=== PATIENT | female | born 1930 | race Caucasian/White ===

== ENCOUNTER 2016-07-22 11:57 | Emergency (ER) | payer OTHER ==
[~2016-07-22] VITALS: Ht 149.9 cm; Wt 52.6 kg
[2016-07-22 12:09] VITALS: BP 153/71; PULSE 74; RESP 20; TEMP 98.2; O2SAT 98
--- NOTE | 2016-07-22 12:09 | NUR ---
Patient to ER bed 03 to gown for evaluation. Side rails up
--- NOTE | 2016-07-22 12:10 | NUR ---
Pt brought by daughter , A&ox4, PT C/O pelvic pain and vaginal discharge, skin pink and warm, cap refill <3, VSS, respirations even and unlabored,
--- NOTE | 2016-07-22 12:14 | NUR ---
Dr Blackwell at bedside examining patient
[2016-07-22] MEDS ORDERED: ZOLOFT (12:44)
[2016-07-22] MEDS ORDERED: SERT-131 (12:44)
[2016-07-22] MEDS ORDERED: MELO15TA13 (12:44)
[2016-07-22] MEDS ORDERED: LOVA40TA75 (12:44)
[2016-07-22] MEDS ORDERED: KETOROLAC TROMETHAMINE 15 MG VIAL IVP ONE (13:30)
[2016-07-22] MEDS ORDERED: cefTRIAXone 1 GM IVPB PREMIX 50 ML IV ONE (13:30)
[2016-07-22] MEDS ORDERED: NACL 0.9% 1,000 ML IV ONE (13:30)
[2016-07-22 13:36] LABS: BASOPHILS # (AUTO) 0.2 K/uL (0.0-0.2); BASOPHILS % (AUTO) 1.4 % (0.0-2.0); EOSINOPHILS # (AUTO) 0.1 K/uL (0.0-0.4); EOSINOPHILS % (AUTO) 0.5 % (0.0-4.0); HEMATOCRIT 38.5 % (36-48); HEMOGLOBIN 12.7 g/dL (12.0-16.0); LYMPHOCYTES # (AUTO) 5.3 K/uL (1.0-5.5); MEAN CORPUSCULAR HEMOGLOBIN 27 pg (27-31); MEAN CORPUSCULAR HGB CONC 33 % (32-36); MEAN CORPUSCULAR VOLUME 82 fL (79.0-98.0); MONOCYTES # (AUTO) 0.5 K/uL (0.0-1.0); MONOCYTES % (AUTO) 4.1 % (1.7-9.3); NEUTROPHILS # (AUTO) 5.3 K/uL (1.8-7.7); PLATELET COUNT (AUTO) 230 K/uL (130-430); RED BLOOD CELL COUNT(AUTO) 4.68 MIL/uL (4.2-6.2); RED CELL DISTRIBUTION WIDTH 13.4 % (9.0-15.0); WHITE BLOOD COUNT (AUTO) 11.4 K/uL (4.8-10.8)
[2016-07-22 13:41] LABS: BILIRUBIN,URINE NEGATIVE (NEGATIVE); CLARITY/URINE CLEAR (CLEAR); COLOR,URINE YELLOW (YELLOW); GLUCOSE,URINE NEGATIVE (NEGATIVE); KETONES,URINE NEGATIVE (NEGATIVE); LEUKOCYTE ESTERASE ,URINE 2+ (NEGATIVE); NITRITE, URINE NEGATIVE (NEGATIVE); PROTEIN URINE NEGATIVE (NEGATIVE); UROBILINOGEN,URINE 0.2 (0.2-1.0)
[2016-07-22 13:46] LABS: ANION GAP 6 (5-15); CALCIUM 8.6 mg/dL (8.4-11.0); CHLORIDE 102 mmol/L (98-107); CREATININE 0.86 mg/dL (0.55-1.30); GLUCOSE 119 mg/dL (70-99); POTASSIUM 4.2 mmol/L (3.5-5.1); SODIUM SERUM 136 mmol/L (136-145); UREA NITROGEN, BLOOD 16 mg/dL (8-21)
[2016-07-22 13:50] LABS: ALANINE AMINOTRANSFERASE 24 U/L (12-78); ALBUMIN 3.5 g/dL (3.4-4.8); AMYLASE 50 U/L (0-100); ASPARTATE AMINOTRANSFERASE 21 U/L (10-37); LIPASE 185 U/L (73-393); TOTAL BILIRUBIN 0.7 mg/dL (0.0-1.0); TOTAL PROTEIN, SERUM 6.9 g/dL (6.4-8.3)
[2016-07-22 13:59] LABS: BLOOD, URINE TRACE (NEGATIVE)
[2016-07-22 14:02] LABS: BACTERIA,URINE FEW /HPF (None Seen); RBC,URINE 0-3 /HPF (0-3)
[2016-07-22 14:03] LABS: MUCUS,URINE None Seen /LPF (None Seen)
[2016-07-22 14:10] VITALS: BP 153/71; PULSE 74; RESP 20; TEMP 98.2; O2SAT 98
--- NOTE | 2016-07-22 14:10 | NUR ---
Patient given written and verbal discharge instructions and verbalizes understanding. ER MD discussed with patient the results and treatment provided.Patient in stable condition. ID arm band removed. IV catheter removed intact and dressing applied, no active bleeding. . Patient educated on pain management and to follow up with PMD. Pain Scale 0/10. Opportunity for questions provided and answered.
== END 2016-07-22 14:10 | disposition home or self-care (01) ==
LOC: SED 11:57
DX: N39.0 Urinary tract infection, site not specified (principal); R03.0 Elevated blood-pressure reading, without diagnosis of hypertension; E78.00 Pure hypercholesterolemia, unspecified
CPT/HCPCS: 36415; 80053; 81000; 82150; 83605; 83690; 85025; 87040; 87086; 96360; 96365; 96375; 99284; J0696; J1885; J7030

== ENCOUNTER 2018-04-14 09:58 | Inpatient (IN) | payer OTHER ==
[2018-04-14] VITALS (13 sets, daily range): BP systolic 120–154
[~2018-04-14] VITALS: Ht 149.9 cm; Wt 44.1 kg
[~2018-04-14 09:58] MED LIST: CEPH-568 PO; FEN12PAT TD; LIP40 PO; MELO15TA13 PO; OXYB5TAB11 PO; SERT100T PO
[2018-04-14] MEDS ORDERED: NACL 0.9% 1,000 ML IV ONE (10:32)
[2018-04-14] MEDS ORDERED: ASPIRIN 81 MG TAB.CHEW PO ONE (10:45)
[2018-04-14] MEDS ORDERED: ATROPINE SULFATE 0.4 MG/ML VIAL IVP ONE ×2 (10:45→12:15)
[2018-04-14] MEDS ORDERED: ATROPINE SULFATE 1 MG/10 ML SYRINGE IVP ONE (10:51)
[2018-04-14 11:00] LABS: BASOPHILS # (AUTO) 0.2 K/uL (0.0-0.2); BASOPHILS % (AUTO) 1.1 % (0.0-2.0); EOSINOPHILS % (AUTO) 0.1 % (0.0-4.0); HEMATOCRIT 35.1 % (36-48); HEMOGLOBIN 11.7 g/dL (12.0-16.0); LYMPHOCYTES # (AUTO) 6.4 K/uL (1.0-5.5); LYMPHOCYTES % (AUTO) 33.6 % (20.5-51.5); MEAN CORPUSCULAR HEMOGLOBIN 27 pg (27-31); MEAN CORPUSCULAR HGB CONC 33 % (32-36); MEAN CORPUSCULAR VOLUME 81 fL (79.0-98.0); NEUTROPHILS # (AUTO) 11.5 K/uL (1.8-7.7); PLATELET COUNT (AUTO) 173 K/uL (130-430); RED BLOOD CELL COUNT(AUTO) 4.32 MIL/uL (4.2-6.2); RED CELL DISTRIBUTION WIDTH 14.8 % (9.0-15.0); WHITE BLOOD COUNT (AUTO) 19.1 K/uL (4.8-10.8)
[2018-04-14 11:16] LABS: ANION GAP 14 (5-15); CALCIUM 9.1 mg/dL (8.4-11.0); CREATININE 1.21 mg/dL (0.55-1.30); POTASSIUM 4.6 mmol/L (3.5-5.1); PROTHROMBIN TIME 10.5 SECS (9.5-12.5)
[2018-04-14 11:21] LABS: ALANINE AMINOTRANSFERASE 81 U/L (12-78); ALBUMIN 3.2 g/dL (3.4-4.8); AMYLASE 25 U/L (0-100); ASPARTATE AMINOTRANSFERASE 48 U/L (10-37); LIPASE 144 U/L (73-393); TOTAL BILIRUBIN 1.5 mg/dL (0.0-1.0)
[2018-04-14 11:22] LABS: CHLORIDE 87 mmol/L (98-107); GLUCOSE 116 mg/dL (70-99); SODIUM SERUM 121 mmol/L (136-145); UREA NITROGEN, BLOOD 46 mg/dL (8-21)
[2018-04-14 12:20] LABS: NEUTROPHILS % (AUTO) 60.2 % (40.0-70.0)
[2018-04-14] MEDS ORDERED: AZITHROMYCIN 500 MG in NS 250 ML IV ONE (12:45)
[2018-04-14] MEDS ORDERED: cefTRIAXone 1 GM IVPB PREMIX 50 ML IV ONE (12:45)
[2018-04-14 13:07] LABS: BILIRUBIN,URINE NEGATIVE (NEGATIVE); CLARITY/URINE CLEAR (CLEAR); COLOR,URINE YELLOW (YELLOW); GLUCOSE,URINE NEGATIVE (NEGATIVE); KETONES,URINE TRACE (NEGATIVE); LEUKOCYTE ESTERASE ,URINE NEGATIVE (NEGATIVE); NITRITE, URINE NEGATIVE (NEGATIVE); PH,URINE 5.5 (5.0-8.0); PROTEIN URINE 1+ (NEGATIVE); UROBILINOGEN,URINE 0.2 (0.2-1.0)
[2018-04-14 13:08] LABS: BLOOD, URINE TRACE (NEGATIVE)
[2018-04-14] MEDS ORDERED: ATROPINE SULFATE 1 MG/10 ML SYRINGE IVP PRN (13:30)
[2018-04-14] MEDS ORDERED: FUROSEMIDE 20 MG/2 ML VIAL IVP ONE (13:30)
[2018-04-14] MEDS ORDERED: ONDANSETRON HCL 4 MG/2 ML VIAL IVP PRN (13:30)
[2018-04-14 13:43] LABS: BACTERIA,URINE MODERATE /HPF (None Seen); HYALINE CASTS, URINE 0-10 /LPF (None Seen)
[2018-04-14] MEDS: NORMAL SALINE 5 ML DISP.SYRIN IVF SCH ×2 (14:00→22:37)
[2018-04-14] MEDS ORDERED: AZITHROMYCIN 500 MG/VIAL (ZITHROMAX) IV ONE (14:05)
[2018-04-14] MEDS ORDERED: CEFEPIME 1 GM in D5W 50 ML IV ONE (14:15)
[2018-04-14] MEDS: ALBUTEROL SULFATE 0.083% 2.5 MG/3 ML VIAL.NEB INH SCH ×3 (15:00→23:14)
[2018-04-14 15:30] LABS: FREE T4 (FREE THYROXINE) 0.9 ng/dL (0.6-1.6); THYROID STIMULATING HORMONE 1.99 uIu/mL (0.34-4.82)
[2018-04-14] MEDS: NACL 0.9% 1,000 ML IV SCH (17:00)
[2018-04-14] MEDS: LEVOFLOXACIN 250 MG/D5W 50 ML IV SCH (17:01)
[2018-04-14] MEDS ORDERED: NS 250 ML IV.SOLN IV ONE (17:30)
[2018-04-14] MEDS ORDERED: BUPIVACAINE /EPINEPHRINE/PF 0.25% 30 ML VIAL INJ ONE (17:30)
[2018-04-14] MEDS ORDERED: MIDAZOLAM HCL 5 MG/5 ML VIAL IVP ONE (17:30)
[2018-04-14] MEDS ORDERED: PROPOFOL 200MG/ 20ML VIAL (DIPRIVAN) IV ONE (17:30)
[2018-04-14] MEDS ORDERED: LIDOCAINE 1% 10 MG/ML, 20 ML MDV INJ ONE (17:30)
[2018-04-14] MEDS ORDERED: VANCOMYCIN HCL 1000 MG/VIAL IV ONE (17:30)
[2018-04-14] MEDS: CEFEPIME 1 GM in D5W 50 ML IV SCH (20:15)
[2018-04-14] MEDS ORDERED: ACETAMINOPHEN 650 MG SUPP.RECT RC PRN (20:15)
[2018-04-14] MEDS: FUROSEMIDE 20 MG/2 ML VIAL IVP SCH (20:16)
[2018-04-14] MEDS ORDERED: ACETAMINOPHEN 650 MG SUPP.RECT RC ONE (20:18)
[2018-04-14] MEDS: ATORVASTATIN 20 MG TABLET PO SCH (20:38)
[2018-04-14] MEDS ORDERED: CEFEPIME 1 GM in D5W 50 ML IV SCH (21:00)
[2018-04-14] MEDS ORDERED: MORPHINE 4 MG/ML INJ. SYRINGE IM PRN (22:00)
[2018-04-15] VITALS (24 sets, daily range): BP systolic 100–151
[2018-04-15] MEDS: ALBUTEROL SULFATE 0.083% 2.5 MG/3 ML VIAL.NEB INH SCH ×6 (04:02→23:10)
[2018-04-15] MEDS: NORMAL SALINE 5 ML DISP.SYRIN IVF SCH ×3 (05:34→21:01)
[2018-04-15 06:54] LABS: BASOPHILS % (AUTO) 0.1 % (0.0-2.0); EOSINOPHILS # (AUTO) 0.1 K/uL (0.0-0.4); EOSINOPHILS % (AUTO) 0.5 % (0.0-4.0); HEMATOCRIT 29.7 % (36-48); HEMOGLOBIN 9.7 g/dL (12.0-16.0); LYMPHOCYTES # (AUTO) 3.1 K/uL (1.0-5.5); LYMPHOCYTES % (AUTO) 30.7 % (20.5-51.5); MEAN CORPUSCULAR HEMOGLOBIN 27 pg (27-31); MEAN CORPUSCULAR HGB CONC 33 % (32-36); MEAN CORPUSCULAR VOLUME 81 fL (79.0-98.0); MONOCYTES # (AUTO) 0.7 K/uL (0.0-1.0); MONOCYTES % (AUTO) 6.8 % (1.7-9.3); NEUTROPHILS # (AUTO) 6.2 K/uL (1.8-7.7); NEUTROPHILS % (AUTO) 61.9 % (40.0-70.0); PLATELET COUNT (AUTO) 121 K/uL (130-430); RED BLOOD CELL COUNT(AUTO) 3.67 MIL/uL (4.2-6.2); RED CELL DISTRIBUTION WIDTH 14.7 % (9.0-15.0); WHITE BLOOD COUNT (AUTO) 10.1 K/uL (4.8-10.8)
[2018-04-15] MEDS: CEFEPIME 1 GM in D5W 50 ML IV SCH ×2 (08:28→20:36)
[2018-04-15 08:29] LABS: ALANINE AMINOTRANSFERASE 60 U/L (12-78); ALBUMIN 2.4 g/dL (3.4-4.8); ANION GAP 15 (5-15); ASPARTATE AMINOTRANSFERASE 33 U/L (10-37); CALCIUM 7.7 mg/dL (8.4-11.0); CHLORIDE 95 mmol/L (98-107); CREATININE 1.13 mg/dL (0.55-1.30); GLUCOSE 89 mg/dL (70-99); POTASSIUM 3.6 mmol/L (3.5-5.1); SODIUM SERUM 128 mmol/L (136-145); TOTAL BILIRUBIN 0.7 mg/dL (0.0-1.0); UREA NITROGEN, BLOOD 43 mg/dL (8-21)
[2018-04-15] MEDS: FUROSEMIDE 20 MG/2 ML VIAL IVP SCH (08:29)
[2018-04-15] MEDS: ENOXAPARIN SODIUM 30 MG/0.3 ML SYRINGE SUBCUT SCH (08:30)
[2018-04-15] MEDS: OXYBUTYNIN CHLORIDE 5 MG TABLET PO SCH (09:00)
[2018-04-15] MEDS ORDERED: DOPamine PREMIX 250 ML IV PRN (09:00)
[2018-04-15] MEDS: PANTOPRAZOLE SODIUM 40 MG TAB PO SCH (09:00)
[2018-04-15] MEDS: SERTRALINE HCL 50 MG TABLET PO SCH (09:00)
[2018-04-15] MEDS: D5/0.45 NS 1,000 ML IV SCH ×2 (10:27→20:40)
[2018-04-15] MEDS ORDERED: POTASSIUM CHLORIDE 40 MEQ in NS 250 ML IV ONE (11:00)
[2018-04-15 11:37] LABS: URINE SODIUM, RANDOM 20 mmol/L (40-220)
[2018-04-15] MEDS: LEVOFLOXACIN 250 MG/D5W 50 ML IV SCH (14:41)
[2018-04-15] MEDS: NACL 0.9% 1,000 ML IV SCH (16:00)
[2018-04-15] MEDS ORDERED: FUROSEMIDE 20 MG/2 ML VIAL IVP ONE (20:00)
[2018-04-15] MEDS: ATORVASTATIN 20 MG TABLET PO SCH (20:35)
[2018-04-16] VITALS (21 sets, daily range): BP systolic 100–175
[2018-04-16] MEDS: ALBUTEROL SULFATE 0.083% 2.5 MG/3 ML VIAL.NEB INH SCH ×6 (03:00→23:15)
[2018-04-16] MEDS: NORMAL SALINE 5 ML DISP.SYRIN IVF SCH ×3 (05:47→21:20)
[2018-04-16 06:08] LABS: BASOPHILS % (AUTO) 0.3 % (0.0-2.0); EOSINOPHILS # (AUTO) 0.1 K/uL (0.0-0.4); EOSINOPHILS % (AUTO) 0.6 % (0.0-4.0); HEMATOCRIT 33.6 % (36-48); LYMPHOCYTES # (AUTO) 4.2 K/uL (1.0-5.5); LYMPHOCYTES % (AUTO) 35.5 % (20.5-51.5); MEAN CORPUSCULAR HEMOGLOBIN 27 pg (27-31); MEAN CORPUSCULAR HGB CONC 33 % (32-36); MEAN CORPUSCULAR VOLUME 83 fL (79.0-98.0); MONOCYTES # (AUTO) 0.9 K/uL (0.0-1.0); MONOCYTES % (AUTO) 7.4 % (1.7-9.3); NEUTROPHILS # (AUTO) 6.6 K/uL (1.8-7.7); NEUTROPHILS % (AUTO) 56.2 % (40.0-70.0); PLATELET COUNT (AUTO) 162 K/uL (130-430); RED BLOOD CELL COUNT(AUTO) 4.03 MIL/uL (4.2-6.2); RED CELL DISTRIBUTION WIDTH 14.9 % (9.0-15.0); WHITE BLOOD COUNT (AUTO) 11.8 K/uL (4.8-10.8)
[2018-04-16 06:11] LABS: ALANINE AMINOTRANSFERASE 53 U/L (12-78); ALBUMIN 2.3 g/dL (3.4-4.8); AMYLASE 41 U/L (0-100); ANION GAP 13 (5-15); ASPARTATE AMINOTRANSFERASE 28 U/L (10-37); CALCIUM 7.6 mg/dL (8.4-11.0); CHLORIDE 99 mmol/L (98-107); CREATININE 0.89 mg/dL (0.55-1.30); GLUCOSE 152 mg/dL (70-99); LIPASE 402 U/L (73-393); POTASSIUM 3.8 mmol/L (3.5-5.1); SODIUM SERUM 132 mmol/L (136-145); TOTAL BILIRUBIN 0.7 mg/dL (0.0-1.0); UREA NITROGEN, BLOOD 28 mg/dL (8-21)
[2018-04-16] MEDS ORDERED: DOPamine PREMIX 250 ML IV PRN (07:30)
[2018-04-16] MEDS: CEFEPIME 1 GM in D5W 50 ML IV SCH ×2 (08:04→21:20)
[2018-04-16] MEDS: OXYBUTYNIN CHLORIDE 5 MG TABLET PO SCH (08:05)
[2018-04-16] MEDS: PANTOPRAZOLE SODIUM 40 MG TAB PO SCH (08:07)
[2018-04-16] MEDS: FUROSEMIDE 20 MG/2 ML VIAL IVP SCH (08:13)
[2018-04-16] MEDS: SERTRALINE HCL 50 MG TABLET PO SCH (08:28)
[2018-04-16] MEDS: D5/0.45 NS 1,000 ML IV SCH ×2 (08:30→16:03)
[2018-04-16] MEDS: ENOXAPARIN SODIUM 30 MG/0.3 ML SYRINGE SUBCUT SCH (08:31)
[2018-04-16] MEDS: LEVOFLOXACIN 250 MG/D5W 50 ML IV SCH (14:31)
[2018-04-16] MEDS ORDERED: VANCOMYCIN HCL 1 GM/NS PREMIX 250 ML IV ONE (16:00)
[2018-04-16] MEDS ORDERED: POLYMYXIN 500,000/BACIT.10,000 UNITS in NS IRR 1 L IR ONE (17:49)
[2018-04-16] MEDS ORDERED: fentaNYL CITRATE/PF 100 MCG/2 ML AMP IVP PRN ×2 (18:15)
[2018-04-16] MEDS ORDERED: ONDANSETRON HCL 4 MG/2 ML VIAL IVP PRN (18:15)
[2018-04-16] MEDS ORDERED: IOHEXOL 50 ML IV ONE (18:15)
[2018-04-16] MEDS: ATORVASTATIN 20 MG TABLET PO SCH (21:20)
[2018-04-16] MEDS: ACETAMINOPHEN 325 MG TABLET PO PRN (21:29)
[2018-04-17] VITALS (19 sets, daily range): BP systolic 127–160
[2018-04-17] MEDS: D5/0.45 NS 1,000 ML IV SCH ×2 (04:02→13:13)
[2018-04-17] MEDS: ALBUTEROL SULFATE 0.083% 2.5 MG/3 ML VIAL.NEB INH SCH ×6 (04:08→23:00)
[2018-04-17] MEDS: NORMAL SALINE 5 ML DISP.SYRIN IVF SCH ×3 (06:05→21:24)
[2018-04-17] MEDS: ACETAMINOPHEN 325 MG TABLET PO PRN ×3 (06:06→19:25)
[2018-04-17 06:55] LABS: BASOPHILS % (AUTO) 0.1 % (0.0-2.0); EOSINOPHILS # (AUTO) 0.1 K/uL (0.0-0.4); EOSINOPHILS % (AUTO) 1.6 % (0.0-4.0); HEMOGLOBIN 10.2 g/dL (12.0-16.0); LYMPHOCYTES # (AUTO) 3.1 K/uL (1.0-5.5); LYMPHOCYTES % (AUTO) 35.8 % (20.5-51.5); MEAN CORPUSCULAR HEMOGLOBIN 27 pg (27-31); MEAN CORPUSCULAR HGB CONC 32 % (32-36); MEAN CORPUSCULAR VOLUME 83 fL (79.0-98.0); MONOCYTES # (AUTO) 0.5 K/uL (0.0-1.0); MONOCYTES % (AUTO) 6.1 % (1.7-9.3); NEUTROPHILS % (AUTO) 56.4 % (40.0-70.0); PLATELET COUNT (AUTO) 163 K/uL (130-430); RED BLOOD CELL COUNT(AUTO) 3.85 MIL/uL (4.2-6.2); RED CELL DISTRIBUTION WIDTH 15.1 % (9.0-15.0); WHITE BLOOD COUNT (AUTO) 8.7 K/uL (4.8-10.8)
[2018-04-17 07:55] LABS: ANION GAP 10 (5-15); CALCIUM 7.3 mg/dL (8.4-11.0); CHLORIDE 103 mmol/L (98-107); GLUCOSE 113 mg/dL (70-99); POTASSIUM 3.4 mmol/L (3.5-5.1); SODIUM SERUM 135 mmol/L (136-145); UREA NITROGEN, BLOOD 16 mg/dL (8-21)
[2018-04-17 08:59] LABS: CREATININE 0.83 mg/dL (0.55-1.30); LIPASE 355 U/L (73-393)
[2018-04-17] MEDS: CEFEPIME 1 GM in D5W 50 ML IV SCH ×2 (09:51→20:14)
[2018-04-17] MEDS: VANCOMYCIN HCL 1 GM/NS PREMIX 250 ML IV SCH ×2 (09:52→21:24)
[2018-04-17] MEDS: SERTRALINE HCL 50 MG TABLET PO SCH (09:52)
[2018-04-17] MEDS: PANTOPRAZOLE SODIUM 40 MG TAB PO SCH (09:52)
[2018-04-17] MEDS: FUROSEMIDE 20 MG/2 ML VIAL IVP SCH (09:53)
[2018-04-17] MEDS: OXYBUTYNIN CHLORIDE 5 MG TABLET PO SCH (09:53)
[2018-04-17] MEDS: ENOXAPARIN SODIUM 30 MG/0.3 ML SYRINGE SUBCUT SCH (09:54)
[2018-04-17] MEDS ORDERED: POTASSIUM CHLORIDE 40 MEQ, LIDOCAINE JECT 2% PF 100 MG 50 MG in NS 250 ML IV ONE (10:30)
[2018-04-17] MEDS: LEVOFLOXACIN 250 MG/D5W 50 ML IV SCH (14:25)
[2018-04-17] MEDS: ATORVASTATIN 20 MG TABLET PO SCH (20:13)
[2018-04-18] VITALS (19 sets, daily range): BP systolic 102–155
[2018-04-18] MEDS: D5/0.45 NS 1,000 ML IV SCH (02:40)
[2018-04-18] MEDS: ALBUTEROL SULFATE 0.083% 2.5 MG/3 ML VIAL.NEB INH SCH ×6 (03:55→23:54)
[2018-04-18 05:31] LABS: HEMATOCRIT 37.4 % (36-48); HEMOGLOBIN 12.5 g/dL (12.0-16.0); MEAN CORPUSCULAR HEMOGLOBIN 27 pg (27-31); MEAN CORPUSCULAR HGB CONC 33 % (32-36); MEAN CORPUSCULAR VOLUME 82 fL (79.0-98.0); PLATELET COUNT (AUTO) 203 K/uL (130-430); RED BLOOD CELL COUNT(AUTO) 4.57 MIL/uL (4.2-6.2)
[2018-04-18 05:33] LABS: ANION GAP 14 (5-15); CALCIUM 7.1 mg/dL (8.4-11.0); CHLORIDE 99 mmol/L (98-107); CREATININE 0.78 mg/dL (0.55-1.30); GLUCOSE 139 mg/dL (70-99); SODIUM SERUM 133 mmol/L (136-145); UREA NITROGEN, BLOOD 12 mg/dL (8-21)
[2018-04-18 05:43] LABS: ASPARTATE AMINOTRANSFERASE 27 U/L (10-37); TOTAL BILIRUBIN 1.2 mg/dL (0.0-1.0)
[2018-04-18] MEDS: NORMAL SALINE 5 ML DISP.SYRIN IVF SCH ×3 (06:00→21:43)
[2018-04-18] MEDS ORDERED: D5/0.45 NS 1,000 ML IV SCH (06:02)
[2018-04-18 06:05] LABS: ALANINE AMINOTRANSFERASE 41 U/L (12-78); ALBUMIN 2.7 g/dL (3.4-4.8)
[2018-04-18] MEDS ORDERED: FUROSEMIDE 40 MG/4 ML VIAL IVP ONE (06:15)
[2018-04-18 06:28] LABS: BASOPHILS % (MANUAL) 0 % (0-2); EOSINOPHILS % (MANUAL) 2 % (0-7); LYMPHOCYTES % (MANUAL) 32 % (20-46); MONOCYTES % (MANUAL) 5 % (0-11)
[2018-04-18] MEDS ORDERED: FUROSEMIDE 20 MG/2 ML VIAL IVP ONE (07:50)
[2018-04-18] MEDS ORDERED: SODIUM BICARBONATE 8.4% JECT 50 MEQ/50 ML SYRINGE IVP ONE (09:15)
[2018-04-18] MEDS: ENOXAPARIN SODIUM 30 MG/0.3 ML SYRINGE SUBCUT SCH (09:36)
[2018-04-18] MEDS: PANTOPRAZOLE SODIUM 40 MG TAB PO SCH (09:38)
[2018-04-18] MEDS: OXYBUTYNIN CHLORIDE 5 MG TABLET PO SCH (09:38)
[2018-04-18] MEDS: SERTRALINE HCL 50 MG TABLET PO SCH (09:38)
[2018-04-18] MEDS: CEFEPIME 1 GM in D5W 50 ML IV SCH ×2 (09:40→21:42)
[2018-04-18] MEDS ORDERED: METOLAZONE 5 MG TABLET PO ONE (09:45)
[2018-04-18] MEDS ORDERED: MORPHINE 4 MG/ML INJ. SYRINGE IVP PRN (13:00)
[2018-04-18] MEDS: LEVOFLOXACIN 250 MG/D5W 50 ML IV SCH (14:49)
[2018-04-18] MEDS: FUROSEMIDE 20 MG/2 ML VIAL IVP SCH (18:17)
[2018-04-18] MEDS: ATORVASTATIN 20 MG TABLET PO SCH (21:36)
[2018-04-19] VITALS (24 sets, daily range): BP systolic 111–136
[2018-04-19] MEDS: ALBUTEROL SULFATE 0.083% 2.5 MG/3 ML VIAL.NEB INH SCH ×6 (04:02→23:49)
[2018-04-19] MEDS: FUROSEMIDE 20 MG/2 ML VIAL IVP SCH ×2 (06:31→17:23)
[2018-04-19] MEDS: NORMAL SALINE 5 ML DISP.SYRIN IVF SCH ×3 (06:32→21:15)
[2018-04-19 06:59] LABS: BASOPHILS # (AUTO) 0.1 K/uL (0.0-0.2); BASOPHILS % (AUTO) 0.4 % (0.0-2.0); EOSINOPHILS % (AUTO) 0.1 % (0.0-4.0); HEMATOCRIT 35.6 % (36-48); HEMOGLOBIN 11.7 g/dL (12.0-16.0); LYMPHOCYTES # (AUTO) 6.8 K/uL (1.0-5.5); LYMPHOCYTES % (AUTO) 33.1 % (20.5-51.5); MEAN CORPUSCULAR HEMOGLOBIN 27 pg (27-31); MEAN CORPUSCULAR HGB CONC 33 % (32-36); MEAN CORPUSCULAR VOLUME 82 fL (79.0-98.0); MONOCYTES # (AUTO) 0.9 K/uL (0.0-1.0); MONOCYTES % (AUTO) 4.2 % (1.7-9.3); NEUTROPHILS # (AUTO) 12.9 K/uL (1.8-7.7); PLATELET COUNT (AUTO) 215 K/uL (130-430); RED BLOOD CELL COUNT(AUTO) 4.34 MIL/uL (4.2-6.2); WHITE BLOOD COUNT (AUTO) 20.7 K/uL (4.8-10.8)
[2018-04-19 07:11] LABS: ALANINE AMINOTRANSFERASE 33 U/L (12-78); ALBUMIN 2.5 g/dL (3.4-4.8); ANION GAP 13 (5-15); ASPARTATE AMINOTRANSFERASE 28 U/L (10-37); CALCIUM 8.1 mg/dL (8.4-11.0); CHLORIDE 100 mmol/L (98-107); CREATININE 1.28 mg/dL (0.55-1.30); GLUCOSE 114 mg/dL (70-99); POTASSIUM 3.6 mmol/L (3.5-5.1); SODIUM SERUM 137 mmol/L (136-145); TOTAL BILIRUBIN 1.3 mg/dL (0.0-1.0); UREA NITROGEN, BLOOD 24 mg/dL (8-21)
[2018-04-19 07:25] LABS: NEUTROPHILS % (AUTO) 62.2 % (40.0-70.0)
[2018-04-19] MEDS ORDERED: METOLAZONE 5 MG TABLET PO ONE (09:15)
[2018-04-19] MEDS: CEFEPIME 1 GM in D5W 50 ML IV SCH ×2 (09:37→21:13)
[2018-04-19] MEDS: PANTOPRAZOLE SODIUM 40 MG TAB PO SCH (09:37)
[2018-04-19] MEDS: SERTRALINE HCL 50 MG TABLET PO SCH (09:37)
[2018-04-19] MEDS: ENOXAPARIN SODIUM 30 MG/0.3 ML SYRINGE SUBCUT SCH (09:41)
[2018-04-19] MEDS: LEVOFLOXACIN 250 MG/D5W 50 ML IV SCH (13:26)
[2018-04-19] MEDS: ATORVASTATIN 20 MG TABLET PO SCH (21:14)
[2018-04-19] MEDS: ACETAMINOPHEN 325 MG TABLET PO PRN (21:25)
[2018-04-20] VITALS (15 sets, daily range): BP systolic 112–139
[2018-04-20] MEDS: ALBUTEROL SULFATE 0.083% 2.5 MG/3 ML VIAL.NEB INH SCH ×6 (04:23→23:45)
[2018-04-20] MEDS: FUROSEMIDE 20 MG/2 ML VIAL IVP SCH ×2 (05:52→20:04)
[2018-04-20] MEDS: NORMAL SALINE 5 ML DISP.SYRIN IVF SCH ×3 (05:52→22:00)
[2018-04-20 06:48] LABS: BASOPHILS % (AUTO) 0.1 % (0.0-2.0); EOSINOPHILS % (AUTO) 0.2 % (0.0-4.0); HEMATOCRIT 34.6 % (36-48); HEMOGLOBIN 11.6 g/dL (12.0-16.0); LYMPHOCYTES # (AUTO) 5.4 K/uL (1.0-5.5); LYMPHOCYTES % (AUTO) 31.8 % (20.5-51.5); MEAN CORPUSCULAR HEMOGLOBIN 27 pg (27-31); MEAN CORPUSCULAR HGB CONC 33 % (32-36); MEAN CORPUSCULAR VOLUME 82 fL (79.0-98.0); MONOCYTES # (AUTO) 0.7 K/uL (0.0-1.0); MONOCYTES % (AUTO) 4.1 % (1.7-9.3); NEUTROPHILS # (AUTO) 10.9 K/uL (1.8-7.7); NEUTROPHILS % (AUTO) 63.8 % (40.0-70.0); PLATELET COUNT (AUTO) 189 K/uL (130-430); RED BLOOD CELL COUNT(AUTO) 4.25 MIL/uL (4.2-6.2); RED CELL DISTRIBUTION WIDTH 14.5 % (9.0-15.0)
[2018-04-20 07:34] LABS: ANION GAP 12 (5-15); CALCIUM 8.4 mg/dL (8.4-11.0); CHLORIDE 98 mmol/L (98-107); CREATININE 1.37 mg/dL (0.55-1.30); GLUCOSE 104 mg/dL (70-99); SODIUM SERUM 139 mmol/L (136-145); UREA NITROGEN, BLOOD 31 mg/dL (8-21)
[2018-04-20 07:44] LABS: ALANINE AMINOTRANSFERASE 24 U/L (12-78); ALBUMIN 2.3 g/dL (3.4-4.8); ASPARTATE AMINOTRANSFERASE 23 U/L (10-37); TOTAL BILIRUBIN 1.2 mg/dL (0.0-1.0)
[2018-04-20 07:51] LABS: POTASSIUM 2.7 mmol/L (3.5-5.1)
[2018-04-20] MEDS ORDERED: KCL 40 mEq in 100 mL (PREMIX) 100 ML IV ONE (08:45)
[2018-04-20] MEDS: PANTOPRAZOLE SODIUM 40 MG TAB PO SCH (08:48)
[2018-04-20] MEDS: SERTRALINE HCL 50 MG TABLET PO SCH (08:48)
[2018-04-20] MEDS: CEFEPIME 1 GM in D5W 50 ML IV SCH ×2 (08:48→20:05)
[2018-04-20] MEDS: ENOXAPARIN SODIUM 30 MG/0.3 ML SYRINGE SUBCUT SCH (08:50)
[2018-04-20] MEDS: LEVOFLOXACIN 250 MG/D5W 50 ML IV SCH (14:02)
[2018-04-20] MEDS: ATORVASTATIN 20 MG TABLET PO SCH (21:00)
[2018-04-21 00:50] VITALS: BP_SYST 109
[2018-04-21] MEDS: ALBUTEROL SULFATE 0.083% 2.5 MG/3 ML VIAL.NEB INH SCH ×6 (04:04→23:29)
[2018-04-21] MEDS: NORMAL SALINE 5 ML DISP.SYRIN IVF SCH ×3 (05:27→21:02)
[2018-04-21] MEDS: FUROSEMIDE 20 MG/2 ML VIAL IVP SCH ×2 (05:27→17:56)
[2018-04-21 06:12] LABS: ANION GAP 10 (5-15); CALCIUM 8.5 mg/dL (8.4-11.0); CHLORIDE 97 mmol/L (98-107); CREATININE 1.47 mg/dL (0.55-1.30); GLUCOSE 110 mg/dL (70-99); POTASSIUM 3.1 mmol/L (3.5-5.1); SODIUM SERUM 139 mmol/L (136-145); UREA NITROGEN, BLOOD 42 mg/dL (8-21)
[2018-04-21 06:23] LABS: ALANINE AMINOTRANSFERASE 26 U/L (12-78); ALBUMIN 2.3 g/dL (3.4-4.8); ASPARTATE AMINOTRANSFERASE 29 U/L (10-37)
[2018-04-21 07:20] LABS: BASOPHILS # (AUTO) 0.1 K/uL (0.0-0.2); BASOPHILS % (AUTO) 0.4 % (0.0-2.0); EOSINOPHILS # (AUTO) 0.1 K/uL (0.0-0.4); EOSINOPHILS % (AUTO) 0.4 % (0.0-4.0); HEMATOCRIT 37.1 % (36-48); HEMOGLOBIN 11.8 g/dL (12.0-16.0); LYMPHOCYTES # (AUTO) 5.4 K/uL (1.0-5.5); LYMPHOCYTES % (AUTO) 34.8 % (20.5-51.5); MEAN CORPUSCULAR HEMOGLOBIN 26 pg (27-31); MEAN CORPUSCULAR HGB CONC 32 % (32-36); MEAN CORPUSCULAR VOLUME 83 fL (79.0-98.0); MONOCYTES # (AUTO) 0.8 K/uL (0.0-1.0); MONOCYTES % (AUTO) 5.4 % (1.7-9.3); NEUTROPHILS # (AUTO) 9.1 K/uL (1.8-7.7); PLATELET COUNT (AUTO) 199 K/uL (130-430); RED BLOOD CELL COUNT(AUTO) 4.49 MIL/uL (4.2-6.2); RED CELL DISTRIBUTION WIDTH 14.1 % (9.0-15.0)
[2018-04-21 07:29] LABS: WHITE BLOOD COUNT (AUTO) 15.5 K/uL (4.8-10.8)
[2018-04-21 07:30] VITALS: BP_SYST 116
[2018-04-21] MEDS ORDERED: POTASSIUM CHLORIDE 20 MEQ TAB.PRT.SR PO ONE (08:30)
[2018-04-21] MEDS ORDERED: NS 500 ML IV ONE (08:45)
[2018-04-21] MEDS: PANTOPRAZOLE SODIUM 40 MG TAB PO SCH (09:05)
[2018-04-21] MEDS: SERTRALINE HCL 50 MG TABLET PO SCH (09:05)
[2018-04-21] MEDS: ENOXAPARIN SODIUM 30 MG/0.3 ML SYRINGE SUBCUT SCH (09:05)
[2018-04-21] MEDS: CEFEPIME 1 GM in D5W 50 ML IV SCH (09:05)
[2018-04-21 11:22] VITALS: BP_SYST 104
[2018-04-21 16:41] VITALS: BP_SYST 106
[2018-04-21] MEDS: ACETAMINOPHEN 325 MG TABLET PO PRN (18:34)
[2018-04-21 19:00] VITALS: BP_SYST 98
[2018-04-21 20:00] VITALS: BP_SYST 98
[2018-04-21] MEDS: ATORVASTATIN 20 MG TABLET PO SCH (20:59)
[2018-04-22 01:31] VITALS: BP_SYST 99
[2018-04-22] MEDS: ALBUTEROL SULFATE 0.083% 2.5 MG/3 ML VIAL.NEB INH SCH ×3 (04:07→11:00)
[2018-04-22] MEDS: NORMAL SALINE 5 ML DISP.SYRIN IVF SCH ×2 (05:19→14:00)
[2018-04-22] MEDS: FUROSEMIDE 20 MG/2 ML VIAL IVP SCH (05:24)
[2018-04-22 07:55] LABS: ANION GAP 9 (5-15); CALCIUM 8.5 mg/dL (8.4-11.0); CHLORIDE 97 mmol/L (98-107); CREATININE 1.53 mg/dL (0.55-1.30); GLUCOSE 119 mg/dL (70-99); POTASSIUM 3.2 mmol/L (3.5-5.1); SODIUM SERUM 138 mmol/L (136-145); UREA NITROGEN, BLOOD 55 mg/dL (8-21)
[2018-04-22 08:05] VITALS: BP_SYST 112
[2018-04-22 08:12] LABS: ALANINE AMINOTRANSFERASE 30 U/L (12-78); ALBUMIN 2.3 g/dL (3.4-4.8); ASPARTATE AMINOTRANSFERASE 37 U/L (10-37); LIPASE 552 U/L (73-393); TOTAL BILIRUBIN 0.8 mg/dL (0.0-1.0)
[2018-04-22 08:13] LABS: BASOPHILS # (AUTO) 0.1 K/uL (0.0-0.2); BASOPHILS % (AUTO) 0.6 % (0.0-2.0); EOSINOPHILS # (AUTO) 0.3 K/uL (0.0-0.4); EOSINOPHILS % (AUTO) 2.5 % (0.0-4.0); HEMATOCRIT 34.6 % (36-48); HEMOGLOBIN 11.6 g/dL (12.0-16.0); LYMPHOCYTES % (AUTO) 37.2 % (20.5-51.5); MEAN CORPUSCULAR HEMOGLOBIN 28 pg (27-31); MEAN CORPUSCULAR HGB CONC 34 % (32-36); MEAN CORPUSCULAR VOLUME 82 fL (79.0-98.0); MONOCYTES # (AUTO) 0.9 K/uL (0.0-1.0); MONOCYTES % (AUTO) 6.3 % (1.7-9.3); NEUTROPHILS # (AUTO) 7.2 K/uL (1.8-7.7); NEUTROPHILS % (AUTO) 53.4 % (40.0-70.0); PLATELET COUNT (AUTO) 195 K/uL (130-430); RED BLOOD CELL COUNT(AUTO) 4.23 MIL/uL (4.2-6.2); RED CELL DISTRIBUTION WIDTH 14.4 % (9.0-15.0); WHITE BLOOD COUNT (AUTO) 13.6 K/uL (4.8-10.8)
[2018-04-22] MEDS: SERTRALINE HCL 50 MG TABLET PO SCH (08:58)
[2018-04-22] MEDS: PANTOPRAZOLE SODIUM 40 MG TAB PO SCH (08:58)
[2018-04-22] MEDS: ENOXAPARIN SODIUM 30 MG/0.3 ML SYRINGE SUBCUT SCH (09:00)
[2018-04-22] MEDS ORDERED: POTASSIUM CHLORIDE 20 MEQ TAB.PRT.SR PO ONE (10:00)
[2018-04-22 11:01] VITALS: BP_SYST 101
[2018-04-22] MEDS: ACETAMINOPHEN 325 MG TABLET PO PRN (11:37)
[2018-04-22 12:45] VITALS: BP_SYST 101
[2018-04-23] MEDS ORDERED: POTASSIUM CHLORIDE 20 MEQ TAB.PRT.SR PO SCH (09:00)
[2018-04-23] MEDS ORDERED: FUROSEMIDE 40 MG/4 ML VIAL IVP SCH (09:00)
== END 2018-04-22 14:00 | DRG 242 ==
LOC: SED 09:58 → SIC 13:36 → STU 04-17 16:00 → SIC 04-18 06:14 → STU 04-20 14:22
PROVIDERS: ADMIT Internal Medicine; ATTEND Internal Medicine
PROC: 02H63JZ Insertion of Pacemaker Lead into Right Atrium, Percutaneous Approach (ICD-10-PCS; 2018-04-16)
PROC: 02HK3JZ Insertion of Pacemaker Lead into Right Ventricle, Percutaneous Approach (ICD-10-PCS; 2018-04-16)
PROC: 3E0102A Introduction of Anti-Infective Envelope into Subcutaneous Tissue, Open Approach (ICD-10-PCS; 2018-04-16)
PROC: 0JH606Z Insertion of Pacemaker, Dual Chamber into Chest Subcutaneous Tissue and Fascia, Open Approach (ICD-10-PCS; principal; 2018-04-16 17:30)
PROC: 02H633Z Insertion of Infusion Device into Right Atrium, Percutaneous Approach (ICD-10-PCS; 2018-04-20)
DX: I44.2 Atrioventricular block, complete (principal); J18.1 Lobar pneumonia, unspecified organism; J96.00 Acute respiratory failure, unspecified whether with hypoxia or hypercapnia; I50.33 Acute on chronic diastolic (congestive) heart failure; E87.1 Hypo-osmolality and hyponatremia; N39.0 Urinary tract infection, site not specified; I44.7 Left bundle-branch block, unspecified; I11.0 Hypertensive heart disease with heart failure; E78.00 Pure hypercholesterolemia, unspecified; E78.5 Hyperlipidemia, unspecified; E87.6 Hypokalemia; F19.10 Other psychoactive substance abuse, uncomplicated; K57.90 Diverticulosis of intestine, part unspecified, without perforation or abscess without bleeding; K80.20 Calculus of gallbladder without cholecystitis without obstruction; M17.10 Unilateral primary osteoarthritis, unspecified knee; M79.7 Fibromyalgia; Z80.6 Family history of leukemia; Z85.6 Personal history of leukemia; Z87.442 Personal history of urinary calculi; R13.10 Dysphagia, unspecified; N28.9 Disorder of kidney and ureter, unspecified; R74.0 Nonspecific elevation of levels of transaminase and lactic acid dehydrogenase [LDH]; G89.29 Other chronic pain; F32.9 Major depressive disorder, single episode, unspecified; M19.90 Unspecified osteoarthritis, unspecified site; R26.9 Unspecified abnormalities of gait and mobility; Z66 Do not resuscitate
CPT/HCPCS: 36415; 36600; 70450-TC; 71045; 76000; 76700-TC; 78226; 80048; 80053; 81000-TC; 82150-TC; 82533; 82550-TC; 82570-TC; 82803-TC; 82962; 83605; 83690-TC; 83880; 83930-TC; 83935-TC; 84302-TC; 84439; 84443-TC; 84484; 85007; 85025; 85027; 85379; 85610-TC; 85730-TC; 87040-TC; 87081; 87086; 92610-GN; 93005; 93306; 94640; 94660; 94760; 96361; 96365; 96375; 96376; 97110-GP; 97530-GP; 99291; A4565; A9537; C1751; C1785; C1898; G0378; J0456; J0461; J0692; J0696; J1265; J1650; J1940; J1956; J2001; J2250; J2270; J2704; J3370; J3480; J3490; J7030; J7040; J7050; J7060; J7613; Q9967

== ENCOUNTER 2018-06-06 12:22 | Emergency (ER) | payer OTHER ==
[~2018-06-06] VITALS: Ht 149.9 cm; Wt 41.3 kg
[2018-06-06 12:22] VITALS: BP_SYST 166
[~2018-06-06 12:22] MED LIST changes: -CEPH-568 PO; -FEN12PAT TD; -MELO15TA13 PO
--- NOTE | 2018-06-06 12:22 | NUR ---
BROUGHT IN BY [facility], PLACED IN BED #8 AND TRIAGED. REPORT GIVEN TO BERENICE
--- NOTE | 2018-06-06 12:52 | NUR ---
DANIELA Albright at bedside examining patient.
--- NOTE | 2018-06-06 12:55 | NUR ---
XRAY AT BEDSIDE
--- NOTE | 2018-06-06 12:59 | NUR ---
Patient sitting up in bed, alert and oriented, speaking in full sentences.
--- NOTE | 2018-06-06 13:10 | NUR ---
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 The patient states that what ever was suck in her throat is gone now and she is able to swallow. The patient is speaking in full sentences, vital signs stable, no signs of distress, respirations equal, no coughing at this time.
[2018-06-06] MEDS ORDERED: methylPREDNISolone SOD SUCC/PF 62.5 MG/ML VIAL IM ONE (13:15)
[2018-06-06] MEDS ORDERED: MAG HYDROX/AL HYDROX/SIMETH 30 ML, BELLADONNA ALKALOIDS/PHENOBARB 10 ML, LIDOCAINE VISC... PO ONE ×3 (13:15)
[2018-06-06 14:20] VITALS: BP_SYST 154
--- NOTE | 2018-06-06 14:23 | NUR ---
Patient given written and verbal discharge instructions and verbalizes understanding. ER MD discussed with patient the results and treatment provided. Patient in stable condition. ID arm band removed. No Rx given. Patient educated on pain management and to follow up with PMD. Pain Scale 0/10 . Opportunity for questions provided and answered. Medication side effect fact sheet provided.
== END 2018-06-06 14:20 | disposition home or self-care (01) ==
LOC: SED 12:22
DX: R09.89 Other specified symptoms and signs involving the circulatory and respiratory systems (principal); R03.0 Elevated blood-pressure reading, without diagnosis of hypertension; E78.00 Pure hypercholesterolemia, unspecified; Z95.0 Presence of cardiac pacemaker; Z79.899 Other long term (current) drug therapy
CPT/HCPCS: 71045; 96372; 99283; J2001; J2930